=== PATIENT | female | born 1970 | race Caucasian/White ===

== ENCOUNTER 2019-06-22 17:57 | Emergency (ER) | payer MEDICARE, MEDICAID, SELFPAY ==
[2019-06-22 18:32] VITALS: BP 136/87; PULSE 77; RESP 16; TEMP 37.4; O2SAT 100
--- NOTE | 2019-06-22 18:37 | ED.URI ---
HPI - URI/Sore Throat General Chief Complaint: Upper Respiratory Infection Stated Complaint: Sore throat Time Seen by Provider: 06/22/19 18:37 Source: patient and RN notes reviewed Related Data Home Medications Medication Instructions Recorded Confirmed hydrocodone-acetaminophen 1 tablet PO Q6H PRN 06/22/19 06/22/19 levothyroxine [Synthroid] 175 mcg PO DAILY 06/22/19 06/22/19 Allergies Allergy/AdvReac Type Severity Reaction Status Date / Time milk Allergy Mild BOWEL Verified 06/22/19 18:50 DISTURBANCES latex Allergy Unknown RASH Verified 06/22/19 18:50 Penicillins Allergy Unknown RASH Verified 06/22/19 18:50 Review of Systems Review of Systems: Narrative: CONSTITUTIONAL: Denies fever, chills, or sweats. EYES: Denies visual changes, redness, or discharge. ENT: Reports of nasal drainage, swollen lymph nodes CARDIOVASCULAR: Denies chest pain, palpitations, or edema. RESPIRATORY: Denies cough or dyspnea. GASTROINTESTINAL: Denies abdominal pain, nausea, vomiting, or diarrhea. GENITOURINARY: Denies dysuria or hematuria. SKIN: Denies rash or itching. MUSCULOSKELETAL: Denies back pain, joint pain, or myalgia. NEUROLOGIC: Denies headache, numbness, or weakness. All other systems reviewed are negative, except as documented in HPI. PMFSH Comments At the time of my signature, I reviewed and agree with the nursing past medical, surgical, social, and family history. There is no relevant family history pertinent to the patient complaint. Exam Narrative: Exam Narrative: GENERAL: This is a well-nourished, well-developed patient, in no apparent distress. HEAD: normocephalic, atraumatic. EYES: PERRL. Sclera clear/white. Vision is grossly intact. EARS: External ears normal, auditory canals clear and without drainage, TMs normal without perforation. Hearing grossly intact. NOSE: External nose normal with no obvious nasal discharge, nares without redness, no rhinorrhea. THROAT: Mucous membranes moist, posterior pharynx clear. NECK: Neck supple, non-tender without lymphadenopathy, masses or thyromegaly. CARDIOVASCULAR: Regular rate and rhythm without murmurs, gallops, or rubs. RESPIRATORY: Clear to auscultation. Breath sounds equal bilaterally. No wheezes, rales, or rhonchi. SKIN: warm, intact with no suspicious lesions or rash, good texture and turgor. NEURO: awake, alert, and oriented to person, place and time. There were no obvious focal neurologic abnormalities. EXTREMITIES: No clubbing, cyanosis, or edema. Course Vital Signs Vital signs: Vital Signs Temperature 99.4 F 06/22/19 18:32 Pulse Rate 77 06/22/19 18:32 Respiratory Rate 16 06/22/19 18:32 Blood Pressure 136/87 06/22/19 18:32 Pulse Oximetry 100 06/22/19 18:32 Temperature 99.4 F 06/22/19 18:32 Pulse Rate 77 06/22/19 18:32 Respiratory Rate 16 06/22/19 18:32 Blood Pressure 136/87 06/22/19 18:32 Pulse Oximetry 100 06/22/19 18:32 Reviewed MDM - URI/Sore Throat MDM Narrative Medical decision making narrative: Will treat patient considering symptoms and other daughter is positive for strep. Advised her to complete the antibiotic regimen as prescribed. Use Tylenol/ibuprofen as needed. Make sure to eat and drink with medication. Use humidifier at night. Increase fluids and rest. Follow-up with PCP within 2 to 5 days or for worsening symptoms or failure to improve. Patient states that she has tolerated azithromycin in the past. Her allergy to milk is irritable bowel Differential Diagnosis Differential diagnosis: Likely upper respiratory infection, otitis media, sinusitis, viral infection, bronchitis, influenza and pharyngitis Lab Data Attestation: I reviewed the patient's lab results. Critical Care Time Critical Care Time Critical Care Time: No Discharge Plan Discharge Clinical Impression: Pharyngitis Qualifiers: Pharyngitis/tonsillitis etiology: unspecified etiology Qualified Code(s): J02.9 - Acute pharyngitis, unspeci
== END 2019-06-22 19:05 | disposition home or self-care (01) ==
PROVIDERS: Emergency Provider Nurse Practitioner Family
DX: J02.9 Acute pharyngitis, unspecified (principal); E03.9 Hypothyroidism, unspecified; M32.9 Systemic lupus erythematosus, unspecified
CPT/HCPCS: 99213; G0463

== ENCOUNTER 2019-07-18 19:30 | Emergency (ER) | payer MEDICARE, MEDICAID, SELFPAY ==
[2019-07-18 19:47] VITALS: BP 117/89; PULSE 75; RESP 20; TEMP 36.4; O2SAT 100
--- NOTE | 2019-07-18 20:00 | ED.URI ---
HPI - URI/Sore Throat General Chief Complaint: Upper Respiratory Infection Stated Complaint: possible strep Time Seen by Provider: 07/18/19 20:00 Source: patient and family History of Present Illness HPI Narrative: Patient here with her daughter. Patient denies any sore throat no cough no nasal drainage. Patient request to have her throat swab. Patient states her insurance will pay for it and she is here she has will have her throat checked for strep. No trouble swallowing no drooling. Normal appetite normal activity no fever no cough no chest pain. Normal healthy individual MD elicited complaint: other (Asymptomatic no complaints at this visit) Related Data Home Medications Medication Instructions Recorded Confirmed levothyroxine [Synthroid] 175 mcg PO DAILY 06/22/19 07/18/19 Allergies Allergy/AdvReac Type Severity Reaction Status Date / Time milk Allergy Mild BOWEL Verified 07/18/19 19:51 DISTURBANCES latex Allergy Unknown RASH Verified 07/18/19 19:51 Penicillins Allergy Unknown RASH Verified 07/18/19 19:51 Review of Systems Review of Systems: Narrative: CONSTITUTIONAL: Denies fever, chills, or sweats. EYES: Denies visual changes, redness, or discharge. ENT: Denies rhinorrhea, congestion, sore throat, or otalgia. CARDIOVASCULAR: Denies chest pain, palpitations, or edema. RESPIRATORY: Denies cough or dyspnea. GASTROINTESTINAL: Denies abdominal pain, nausea, vomiting, or diarrhea. GENITOURINARY: Denies dysuria or hematuria. SKIN: Denies rash or itching. MUSCULOSKELETAL: Denies back pain, joint pain, or myalgia. NEUROLOGIC: Denies headache, numbness, or weakness. PSYCHIATRIC: Denies anxiety or depression. PMFSH Comments At time of signature, agree with nursing past medical, surgical, social and family history. There is no relevant family history pertinent to the presenting complaint Exam Narrative: Exam Narrative: GENERAL: Well-appearing, well-nourished, and in no acute distress. HEAD: Normocephalic, atraumatic. EYES: PERRLA and EOMI. ENT: Nares clear, no rhinorrhea or epistaxis. Mucous membranes moist. NECK: Supple. CHEST: Clear to auscultation. No respiratory distress. HEART: Regular rate and rhythm. No murmur heard. Normal peripheral pulses. ABDOMEN: Soft, nontender, nondistended, normal active bowel sounds. EXTREMITIES: Normal range of motion. No edema. SKIN: Warm, dry, no rash. NEURO: No focal deficits. Alert and oriented x3. [place] Coma Scale Eye Opening: Spontaneous 4 [place] Coma Scale Motor: Obeys Commands 6 [place] Coma Scale Verbal: Oriented 5 [place] Coma Scale Total 15 Course Vital Signs Vital signs: Vital Signs Temperature 36.4 C 07/18/19 19:47 Pulse Rate 75 07/18/19 19:47 Respiratory Rate 20 07/18/19 19:47 Blood Pressure 117/89 07/18/19 19:47 Pulse Oximetry 100 07/18/19 19:47 Temperature 36.4 C 07/18/19 19:47 Pulse Rate 75 07/18/19 19:47 Respiratory Rate 20 07/18/19 19:47 Blood Pressure 117/89 07/18/19 19:47 Pulse Oximetry 100 07/18/19 19:47 MDM - URI/Sore Throat Differential Diagnosis Differential diagnosis: Likely upper respiratory infection, croup, otitis media, sinusitis, viral infection, bronchitis, influenza and pharyngitis Critical Care Time Critical Care Time Critical Care Time: No Discharge Plan Discharge Clinical Impression: Upper respiratory infection, Pharyngitis Patient Disposition: Home, Self-Care Condition: Stable Instructions: Antibiotic Form Additional Instructions: congestion - flonase am and pm for chronic sinus congestion or prolonged symptoms of sinusitis (takes several days to work). one to three times a day of irrigation of sinus with saline spray, ocean nasal spray or pan pot. fluids. if you don't have hypertension-afrin nasal spray with a 3 day limit for immediate relief of sinus congestion. for runny nose: do over the counter antihistamine (claritin, benadryl, zyrtec) for sneezing, run
== END 2019-07-18 20:20 | disposition home or self-care (01) ==
PROVIDERS: Emergency Provider Nurse Practitioner Family
DX: J06.9 Acute upper respiratory infection, unspecified (principal); J02.9 Acute pharyngitis, unspecified; E03.9 Hypothyroidism, unspecified; M32.9 Systemic lupus erythematosus, unspecified
CPT/HCPCS: 87081; 87880; 99213; G0463

== ENCOUNTER 2021-01-09 14:14 | Emergency (ER) | payer MEDICARE, MEDICAID, OTHER, SELFPAY ==
[2021-01-09 14:20] VITALS: BP 117/81; PULSE 84; RESP 14; TEMP 37; O2SAT 98
[2021-01-09 14:34] VITALS: BP 117/81; PULSE 84; RESP 14; TEMP 37; O2SAT 98
--- NOTE | 2021-01-09 14:38 | ED.DENTAL ---
HPI - Dental/Oral General Chief complaint: Dental/Oral Stated complaint: Possible Thrush Time Seen by Provider: 01/09/21 14:38 Source: patient and RN notes reviewed History of Present Illness HPI Narrative: Patient is a 50-year-old female who presents the urgent care with complaints of possible thrush and sore throat. Patient states is been ongoing for approximately 4 weeks. Patient states she is due to have blood work done for her thyroid. Patient denies of any fever, upper respiratory complaints. States that she has been wiping her mouth out this morning. No other acute complaints. No acute distress noted. Patient read the plan of care. Some parts of this dictation were generated by voice recognition software and may contain typographical and/or grammatical inaccuracies. Related Data Home Medications Medication Instructions Recorded Confirmed levothyroxine [Synthroid] 150 mcg PO DAILY 06/22/19 07/18/19 hydrocodone-acetaminophen 1 tablet PO Q6H PRN 01/09/21 01/09/21 Allergies Allergy/AdvReac Type Severity Reaction Status Date / Time milk Allergy Mild BOWEL Verified 01/09/21 14:32 DISTURBANCES latex Allergy Unknown RASH Verified 01/09/21 14:32 Penicillins Allergy Unknown RASH Verified 01/09/21 14:32 Review of Systems Review of Systems: CONSTITUTIONAL: Denies fever, chills, or sweats. EYES: Denies visual changes, redness, or discharge. ENT: Denies rhinorrhea, congestion, or otalgia. Reports a possible sore throat or thrush CARDIOVASCULAR: Denies chest pain, palpitations, or edema. RESPIRATORY: Denies cough or dyspnea. GASTROINTESTINAL: Denies abdominal pain, nausea, vomiting, or diarrhea. GENITOURINARY: Denies dysuria or hematuria. SKIN: Denies rash or itching. MUSCULOSKELETAL: Denies back pain, joint pain, or myalgia. NEUROLOGIC: Denies headache, numbness, or weakness. All other systems reviewed are negative, except as documented in HPI. PMFSH Comments At the time of my signature, I reviewed and agree with the nursing past medical, surgical, social, and family history. There is no relevant family history pertinent to the patient complaint. Exam Narrative: GENERAL: This is a well-nourished, well-developed patient, in no apparent distress. HEAD: normocephalic, atraumatic. EYES: PERRL. Sclera clear/white. Vision is grossly intact. EARS: External ears normal, auditory canals clear and without drainage, TMs normal without perforation. Hearing grossly intact. NOSE: External nose normal with no obvious nasal discharge, nares without redness, no rhinorrhea. THROAT: Mucous membranes moist, posterior pharynx clear. Thin white layer to the tongue and mild erythema noted to posterior oropharynx NECK: Neck supple, non-tender without lymphadenopathy CARDIOVASCULAR: Regular rate and rhythm without murmurs, gallops, or rubs. RESPIRATORY: Clear to auscultation. Breath sounds equal bilaterally. No wheezes, rales, or rhonchi. SKIN: warm, intact with no suspicious lesions or rash, good texture and turgor. NEURO: awake, alert, and oriented to person, place and time. There were no obvious focal neurologic abnormalities. EXTREMITIES: No clubbing, cyanosis, or edema. Course Vital Signs Vital signs: Vital Signs Temperature 98.6 F 01/09/21 14:20 Pulse Rate 84 01/09/21 14:20 Respiratory Rate 14 01/09/21 14:20 Blood Pressure 117/81 01/09/21 14:20 Pulse Oximetry 98 01/09/21 14:20 Temperature 98.6 F 01/09/21 14:34 Pulse Rate 84 01/09/21 14:34 Respiratory Rate 14 01/09/21 14:34 Blood Pressure 117/81 01/09/21 14:34 Pulse Oximetry 98 01/09/21 14:34 Reviewed MDM - Dental/Oral MDM Narrative Medical decision making narrative: Advised the patient to change her toothbrush within 1 week. Continue to wipe the mouth out several times per day with a warm wash rag, changing the washcloth with each time. Swish and swallow the prescribed oral solution. If you develop any increase in symptoms associated w
== END 2021-01-09 15:04 | disposition home or self-care (01) ==
PROVIDERS: Emergency Provider Nurse Practitioner Family
DX: B37.0 Candidal stomatitis (principal); E03.9 Hypothyroidism, unspecified; M32.9 Systemic lupus erythematosus, unspecified; E06.3 Autoimmune thyroiditis
CPT/HCPCS: 99213; G0463

== ENCOUNTER 2021-02-21 12:44 | Emergency (ER) | payer OTHER, SELFPAY ==
--- NOTE | ~2021-02-21 | XR_ITS ---
EXAMINATION: XR lumbar spine 2-3V DATE: 02/21/2021 13:40 INDICATION: Right-sided abdominal pain TECHNIQUE: Anteroposterior and lateral views of the lumbar spine, and cone-down lateral view of the l umbosacral junction were obtained. COMPARISON: None. FINDINGS: There is no fracture, dislocation, or subluxation. There is mild loss of intervertebral dis c space height at L2-3 and L5-S1. The vertebral body heights are maintained. Small degenerative osteo phytes project from the anterior endplates of multiple vertebral bodies. The bowel gas pattern is nor mal. A moderate volume of colonic stool is present. IMPRESSION: 1. Mild lumbar spondylosis without acute findings. Reviewed, dictated and finalized at location A.
[2021-02-21 12:46] VITALS: BP 144/102; PULSE 75; RESP 18; TEMP 36.8; O2SAT 100
--- NOTE | 2021-02-21 13:30 | ED.BACK ---
HPI - Back Pain/Injury General Chief Complaint: Back Pain/Injury Stated Complaint: right lower abd/low back pain Time Seen by Provider: 02/21/21 13:16 Source: patient Mode of arrival: ambulatory Limitations: no limitations History of Present Illness HPI Narrative: Patient is a 50-year-old female complaining of low back pain, right side, 8 out of 10, radiating to left buttocks started 4 days ago after bending over to pickle pumper her card. Patient states that she has seen her chiropractor 3 days ago and had some adjustments done. Patient denies any incontinence, weakness, numbness, fever, chills or urinary symptoms. Related Data Home Medications Medication Instructions Recorded Confirmed levothyroxine [Synthroid] 150 mcg PO DAILY 06/22/19 07/18/19 hydrocodone-acetaminophen 1 tablet PO Q6H PRN 01/09/21 01/09/21 Allergies Allergy/AdvReac Type Severity Reaction Status Date / Time milk Allergy Mild BOWEL Verified 02/21/21 12:46 DISTURBANCES latex Allergy Unknown RASH Verified 02/21/21 12:46 Penicillins Allergy Unknown RASH Verified 02/21/21 12:46 Review of Systems Review of Systems: All systems reviewed & are unremarkable except as noted in HPI and below Constitutional: Constitutional: Denies body ache(s), Denies chills, Denies excessive sweating, Denies fatigue, Denies fever(s), Denies headache(s), Denies lethargy, Denies malaise, Denies weakness and Denies weight loss Eyes: Eyes: Denies blurry vision, Denies change in vision and Denies loss of vision ENT: Denies dizziness, Denies ear discharge, Denies headache(s), Denies lip swelling, Denies epistaxis, Denies nasal congestion, Denies neck pain, Denies throat swelling and Denies tongue swelling Cardiovascular: Cardiovascular: Denies chest pain, Denies chest pain at rest, Denies chest pain with activity, Denies diaphoresis, Denies rapid heart rate, Denies edema, Denies irregular heart rhythm, Denies lightheadedness, Denies palpitations, Denies dyspnea and Denies dyspnea on exertion Respiratory: Respiratory: Denies chest congestion, Denies cough, Denies hemoptysis, Denies dyspnea and Denies dyspnea on exertion Gastrointestinal: Gastrointestinal: Denies abdominal pain, Denies melena, Denies hematochezia, Denies diarrhea, Denies nausea, Denies vomiting and Denies hematemesis Musculoskeletal: Musculoskeletal: Denies abnormal gait, Denies deformity, Denies joint swelling, Denies neck pain and Denies numbness Neurologic: Denies Abnormal speech present, Denies abnormal gait, Denies confusion, Denies dizziness, Denies headache(s), Denies focal weakness, Denies loss of vision, Denies numbness, Denies Other visual disturbances, Denies Sensory deficit (Neuro) and Denies weakness Psychiatric: Psychiatric: Denies confusion, Denies depression, Denies auditory hallucinations, Denies homicidal ideation and Denies suicidal ideation Endocrine: Endocrine: Denies cold intolerance, Denies excessive sweating, Denies fatigue, Denies heat intolerance and Denies palpitations Hematologic/Lymphatic: Hematologic/Lymphatic: Denies easy bleeding and Denies easy bruising Allergic/Immunologic: Allergic/Immunologic: Denies lip swelling, Denies throat swelling and Denies tongue swelling PMFSH Comments Past medical history: Hypothyroidism, allergies Family history: Noncontributory Social history: Exam Const: General: cooperative, healthy appearing, comfortable, no acute distress, well developed, alert and awake; No confusion Orientation/consciousness: oriented to person, oriented to place, oriented to time, patient oriented x3 and No confusion Limitations: no limitations HENMT: Head: normal to inspection, normocephalic and atraumatic Ears: hearing grossly normal bilaterally, TM normal on the right and TM normal on the left General nose exam: Normal external nose present, Normal nares present and No nasal discharge present Face and sinus: normal facial exam Mouth: Yes Normal oral and palatal mucosa pr
[2021-02-21] MEDS: KETOROLAC 30 MG/ML VIAL (*BKC) IM (14:33)
[2021-02-21 15:18] LABS: Add Urine Microscopic? YES; Appearance Urine Cloudy (Clear); Bacteria Urine Trace /hpf; Bilirubin Urine Negative (Negative); Blood Urine 1+ (Negative); Color Urine Yellow (Yellow); Glucose Urine UA Negative (Negative); Ketones Urine Negative (Negative); Leukocyte Esterase Ur 1+ LEU/UL (Negative); Nitrate Urine Negative (Negative); Protein Urine Negative (Negative); Specific Grav Ur 1.009 (1.001-1.035); Squamous Epithelial Cell Urine Many /hpf (Few); Urobilinogen Urine Negative mg/dL (<2.0)
== END 2021-02-21 15:45 | disposition home or self-care (01) ==
PROVIDERS: Emergency Provider Emergency Medicine; PCP Family Medicine
DX: S39.012A Strain of muscle, fascia and tendon of lower back, initial encounter (principal); E03.9 Hypothyroidism, unspecified; R82.998 Other abnormal findings in urine; X50.9XXA Other and unspecified overexertion or strenuous movements or postures, initial encounter
CPT/HCPCS: 72100; 81001; 87086; 96372; 99284; J1100; J1885

== ENCOUNTER 2021-05-15 15:39 | Emergency (ER) | payer OTHER, SELFPAY ==
--- NOTE | 2021-05-15 15:51 | ED.URI ---
HPI - URI/Sore Throat General Chief Complaint: Upper Respiratory Infection Stated Complaint: Sinus pain Time Seen by Provider: 05/15/21 15:51 Source: patient, family, RN notes reviewed and old records reviewed Mode of arrival: ambulatory Limitations: no limitations History of Present Illness HPI Narrative: 50 yo female presents [facility] with complaints of sinus pain and pressure for at least the last 2 days. Has a history of lupus. Has tried Tylenol and allergy sinus. Related Data Home Medications Medication Instructions Recorded Confirmed levothyroxine [Synthroid] 150 mcg PO DAILY 06/22/19 05/15/21 hydrocodone-acetaminophen 1 tablet PO Q6H PRN 01/09/21 05/15/21 hydroxychloroquine 200 mg PO DAILY 05/15/21 05/15/21 Allergies Allergy/AdvReac Type Severity Reaction Status Date / Time milk Allergy Mild BOWEL Verified 05/15/21 15:52 DISTURBANCES latex Allergy Unknown RASH Verified 05/15/21 15:52 Penicillins Allergy Unknown RASH Verified 05/15/21 15:52 Review of Systems Review of Systems: All systems reviewed & are unremarkable except as noted in HPI and below Constitutional: Constitutional: Reports no additional constitutional complaints, Denies chills, Denies fever(s) and Denies headache(s) Eyes: Eyes: Reports no additional eye complaints ENT: Reports as per HPI, Denies vertigo, Denies dizziness, Denies headache(s), Reports nasal congestion and Denies sore throat Comments: Left ear pressure Cardiovascular: Cardiovascular: Reports no additional cardiovascular complaints, Denies chest pain, Denies syncope, Denies rapid heart rate and Denies dyspnea Respiratory: Respiratory: Reports no additional respiratory complaints, Denies cough, Denies dyspnea and Denies wheezing Gastrointestinal: Gastrointestinal: Reports no additional gastrointestinal complaints, Denies abdominal pain, Denies diarrhea, Denies nausea and Denies vomiting Musculoskeletal: Musculoskeletal: Reports no additional musculoskeletal complaints and Denies numbness Integumentary/Breasts: Skin/Breast: Reports system reviewed and no additional complaints, except as docu Neurologic: Reports system reviewed and no additional complaints, except as documented, Denies vertigo, Denies dizziness, Denies syncope, Denies headache(s), Denies focal weakness and Denies numbness Psychiatric: Psychiatric: Reports no additional psychiatric complaints Allergic/Immunologic: Allergic/Immunologic: Reports no additional allergic/immunologic complaints and Denies wheezing PMFSH Past Medical History Medical History (Updated 05/15/21 @ 18:22 by Yandy Lala) Lupus Comments At the time of my signature, I reviewed and agree with the nursing past medical, surgical, social, and family history. There is no relevant family history pertinent to the patient complaint. Exam Const: General: cooperative, healthy appearing, no acute distress, well developed and alert Nutritional Appearance: well nourished Orientation/consciousness: patient oriented x3 Limitations: no limitations HENMT: Head: normal to inspection Ears: external ears normal, TM's normal bilaterally and EAC's normal General nose exam: Abnormal mucous membranes and turbinates present boggy; not erythematous and Nasal discharge present clear Face and sinus: normal facial exam and sinus tenderness frontal and maxillary Throat: posterior oropharynx normal and uvula midline Eyes: Conjunctivae: conjunctivae normal Pupils: Equal, round and reactive pupils present Neck: Neck: normal visual inspection, no lymphadenopathy and no meningeal signs Chest: Chest palpation & inspection: normal inspection of the chest Resp: Effort & Inspection: normal respiratory effort and no use of accessory muscles Auscultation: clear to auscultation bilaterally, no crackles, no rales, no rhonchi and no wheezes Cardio: Rate: regular rate Rhythm: regular rhythm Back/Spine/Pelvis: Back: no CVA tenderness Skin: General skin e
[2021-05-15 15:57] VITALS: BP 114/81; PULSE 88; RESP 16; TEMP 38.2; O2SAT 100
== END 2021-05-15 16:06 | disposition home or self-care (01) ==
PROVIDERS: Emergency Provider Nurse Practitioner; PCP Family Medicine
DX: J01.40 Acute pansinusitis, unspecified (principal); M32.9 Systemic lupus erythematosus, unspecified; E03.9 Hypothyroidism, unspecified; E06.3 Autoimmune thyroiditis
CPT/HCPCS: 99213; G0463

== ENCOUNTER 2022-07-12 15:55 | Emergency (ER) | payer OTHER, SELFPAY ==
[2022-07-12 16:02] VITALS: BP 115/73; PULSE 83; RESP 16; TEMP 36.5; O2SAT 99
--- NOTE | 2022-07-12 16:04 | ED.WOUNDLAC ---
HPI - Wound/Laceration General Chief Complaint: Wound/Laceration Stated Complaint: right thumb injury/ lupus flair Time Seen by Provider: 07/12/22 16:05 Source: patient and RN notes reviewed Mode of arrival: ambulatory Limitations: no limitations History of Present Illness HPI narrative: 51-year-old female presents with multiple concerns. She reports 36 hours ago she lacerated the 1st digit of the right hand on concrete, she put a Band-Aid on it, when she took the bandage off today it started bleeding again. She denies any decreased sensation, strength, range of motion of the digit. In a separate complaints she reports the start of a lupus flare. Reports she has appoint with her doctor on Tuesday, however she needs to get started on steroids sooner than that to prevent the flare from worsening. Related Data Home Medications Medication Instructions Recorded Confirmed levothyroxine 175 mcg tablet 150 mcg PO DAILY 06/22/19 05/15/21 (Synthroid) hydrocodone 7.5 mg-acetaminophen 1 tablet PO Q6H PRN Pain (Scale 01/09/21 05/15/21 325 mg tablet Score 7-10) hydroxychloroquine 200 mg tablet 200 mg PO DAILY 05/15/21 05/15/21 Allergies Allergy/AdvReac Type Severity Reaction Status Date / Time milk Allergy Mild BOWEL Verified 05/15/21 15:52 DISTURBANCES latex Allergy Unknown RASH Verified 05/15/21 15:52 Penicillins Allergy Unknown RASH Verified 05/15/21 15:52 Review of Systems Review of Systems: CONSTITUTIONAL: Denies malaise, chills, sweats, or fever. SKIN: Reports laceration to 1st digit right hand MUSCULOSKELETAL: Reports generalized joint pain NEUROLOGIC: Denies numbness, weakness All systems reviewed & are unremarkable except as noted in HPI and below PMFSH Past Medical History Medical History (Updated 07/12/22 @ 16:18 by Yandy Hale NP) Lupus Comments At time of signature, agree with nursing past medical, surgical, social and family history. There is no relevant family history pertinent to the presenting complaint Exam Narrative: GENERAL: Well-appearing, well-nourished, and in no acute distress. HEAD: Normocephalic EYES: PERRLA, conjunctivae clear NECK: Supple. CHEST: Speaks in full sentences. No respiratory distress. HEART: Regular rate and rhythm. Normal and equal peripheral pulses. EXTREMITIES: 1st digit of right hand has normal strength and sensation. 5/5 strength with digit flexion, extension. Range of motion normal. No clubbing, cyanosis, or edema noted. No tenderness. Normal digital cascade with flexion of fingers, median, ulnar and radial nerve intact. Normal sensation of each side of finger. Normal thumb opposition. Good capillary refill and radial pulse. Distal capillary refill less than 3 seconds. SKIN: Warn, dry, intact, pink. 1 cm L-shaped skin flap noted to the mid 1st digit of the right hand with some active bleeding NEURO: Alert and oriented x3. PSYCH: Normal mood and affect Course Course Emergency Course: Patient's wound was cleaned, closed with Steri-Strips Patient is aware of diagnosis, understands and agrees to treatment plan. Anticipatory guidance given. Patient agrees to follow-up as directed and is aware of reasons to seek care at the emergency department. Portions of this record may have been created with voice recognition software Level of Care: Express Care Visit Vital Signs Vital signs: Reviewed. MDM - Wound/Laceration MDM Narrative Medical decision making narrative: Exam findings show no acute concerns or changes; patient is non-toxic appearing and is in no distress. Patient is appropriate for outpatient treatment and follow-up. Differential Diagnosis Differential diagnosis: Likely laceration, abrasion and avulsion of skin Critical Care Time Critical Care Time Critical Care Time: No Discharge Plan Discharge Clinical Impression: Laceration, SLE exacerbation Patient Disposition: Home, Self-Care Condition: Stable Instructions: Finger Lacerati
== END 2022-07-12 16:36 | disposition home or self-care (01) ==
PROVIDERS: Emergency Provider Nurse Practitioner
DX: S61.011A Laceration without foreign body of right thumb without damage to nail, initial encounter (principal); W45.8XXA Other foreign body or object entering through skin, initial encounter; M32.9 Systemic lupus erythematosus, unspecified
CPT/HCPCS: 99213; G0463

== ENCOUNTER 2022-07-19 18:23 | Emergency (ER) | payer OTHER, SELFPAY ==
--- NOTE | 2022-07-19 18:27 | ED.SKABFB ---
HPI - Skin/Abscess/Foreign Bdy General Chief complaint: Wound/Laceration Stated complaint: Wound Check/Thumb Time Seen by Provider: 07/19/22 18:27 Source: patient and RN notes reviewed History of Present Illness HPI narrative: Patient is a 51-year-old female presents to urgent care requesting for a wound check to the right thumb. Patient was seen at our facility on July 12 after a laceration from a concrete. Patient was seen 36 hours after the injury and the wound was Steri stripped. 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 Patient states that she showed nurse then and even though she had covered with a bandage and glove, states that she noticed some redness around the area was told to have it looked at. Patient denies any fever, nausea or vomiting. States that she has been using Neosporin and cleaning it with plain soap and water. No other acute complaints. No acute distress noted. Patient aware of the plan of care. Some parts of this dictation were generated by voice recognition software and may contain typographical and/or grammatical inaccuracies. Related Data Home Medications Medication Instructions Recorded Confirmed levothyroxine 175 mcg tablet 150 mcg PO DAILY 06/22/19 05/15/21 (Synthroid) hydrocodone 7.5 mg-acetaminophen 1 tablet PO Q6H PRN Pain (Scale 01/09/21 05/15/21 325 mg tablet Score 7-10) hydroxychloroquine 200 mg tablet 200 mg PO DAILY 05/15/21 05/15/21 Allergies Allergy/AdvReac Type Severity Reaction Status Date / Time milk Allergy Mild BOWEL Verified 05/15/21 15:52 DISTURBANCES latex Allergy Unknown RASH Verified 05/15/21 15:52 Penicillins Allergy Unknown RASH Verified 05/15/21 15:52 Review of Systems Review of Systems: CONSTITUTIONAL: Denies fever, chills, or sweats. EYES: Denies visual changes, redness, or discharge. ENT: Denies rhinorrhea, congestion, sore throat, or otalgia. CARDIOVASCULAR: Denies chest pain, palpitations, or edema. RESPIRATORY: Denies cough or dyspnea. GASTROINTESTINAL: Denies abdominal pain, nausea, vomiting, or diarrhea. GENITOURINARY: Denies dysuria or hematuria. SKIN: Reports an open wound to the right thumb MUSCULOSKELETAL: Denies back pain, joint pain, or myalgia. NEUROLOGIC: Denies headache, numbness, or weakness. All other systems reviewed are negative, except as documented in HPI. [facility] Past Medical History Medical History (Updated 07/19/22 @ 18:59 by DICK Denis) Lupus Comments At the time of my signature, I reviewed and agree with the nursing past medical, surgical, social, and family history. There is no relevant family history pertinent to the patient complaint. Exam Narrative: GENERAL: This is a well-nourished, well-developed patient, in no apparent distress. HEAD: normocephalic, atraumatic. EYES: PERRL. Sclera clear/white. Vision is grossly intact. EARS: External ears normal NOSE: External nose normal with no obvious nasal discharge, nares without redness, no rhinorrhea. THROAT: Mucous membranes moist NECK: Neck supple SKIN: 1 cm x 0.25 cm open healing laceration to the left thumb without surrounding erythema or edema. Warm, intact with no suspicious lesions or rash, good texture and turgor. NEURO: awake, alert, and oriented to person, place and time. There were no obvious focal neurologic abnormalities. EXTREMITIES: No clubbing, cyanosis, or edema. Course Course Level of Care: Express Care Visit Vital Signs Vital signs: Vital Signs Temperature 98.4 F 07/19/22 18:32 Pulse Rate 67 07/19/22 18:32 Respiratory Rate 20 07/19/22 18:32 Blood Pressure 97/67 L 07/19/22 18:32 Pulse Oximetry 100 07/19/22 18:32 Oxygen Delivery Room Air 07/19/22 18:32 Temperature 98.4 F 07/19/22 18:32 Pulse Rate 67 07/19/22 18:32 Respiratory Rate 20 07/19/22 18:32 Blood Pressure 97/67 L 07/19/22 18
[2022-07-19 18:32] VITALS: BP 97/67; PULSE 67; RESP 20; TEMP 36.9; O2SAT 100
== END 2022-07-19 19:03 | disposition home or self-care (01) ==
PROVIDERS: Emergency Provider Nurse Practitioner Family
DX: S61.011D Laceration without foreign body of right thumb without damage to nail, subsequent encounter (principal); W45.8XXD Other foreign body or object entering through skin, subsequent encounter
CPT/HCPCS: 99213; G0463

== ENCOUNTER 2022-11-25 13:07 | Emergency (ER) | payer OTHER, SELFPAY ==
[2022-11-25 13:14] VITALS: BP 120/81; PULSE 87; RESP 16; TEMP 37.2; O2SAT 99
--- NOTE | 2022-11-25 13:15 | ED.GENADULT ---
HPI - General Adult General Chief complaint: Ear Stated complaint: Left Ear Pain Time Seen by Provider: 11/25/22 13:15 Source: patient, RN notes reviewed and old records reviewed Mode of arrival: ambulatory Limitations: no limitations History of Present Illness HPI narrative: 52-year-old female presents to the [facility] with complaints of left ear pain that started 4 days ago. Had taking Claritin 1 time Related Data Home Medications Medication Instructions Recorded Confirmed hydrocodone 7.5 mg-acetaminophen 1 tablet PO Q6H PRN Pain (Scale 01/09/21 05/15/21 325 mg tablet Score 7-10) hydroxychloroquine 200 mg tablet 200 mg PO DAILY 05/15/21 05/15/21 levothyroxine 200 mcg tablet 200 mcg PO DAILY 11/25/22 11/25/22 Allergies Allergy/AdvReac Type Severity Reaction Status Date / Time milk Allergy Mild BOWEL Verified 11/25/22 13:15 DISTURBANCES latex Allergy Unknown RASH Verified 11/25/22 13:15 Penicillins Allergy Unknown RASH Verified 11/25/22 13:15 Review of Systems Review of Systems: All systems reviewed & are unremarkable except as noted in HPI and below Constitutional: Constitutional: Reports no additional constitutional complaints Eyes: Eyes: Reports no additional eye complaints ENT: Reports as per HPI and Reports otalgia ( Left) Cardiovascular: Cardiovascular: Reports no additional cardiovascular complaints, Denies chest pain and Denies dyspnea Respiratory: Respiratory: Reports no additional respiratory complaints, Denies chest congestion, Denies cough and Denies dyspnea Gastrointestinal: Gastrointestinal: Reports no additional gastrointestinal complaints, Denies abdominal pain, Denies nausea and Denies vomiting Musculoskeletal: Musculoskeletal: Reports no additional musculoskeletal complaints Integumentary/Breasts: Skin/Breast: Reports system reviewed and no additional complaints, except as docu Neurologic: Reports system reviewed and no additional complaints, except as documented Psychiatric: Psychiatric: Reports no additional psychiatric complaints Allergic/Immunologic: Allergic/Immunologic: Reports no additional allergic/immunologic complaints PMFSH Past Medical History Medical History Lupus Comments At the time of my signature, I reviewed and agree with the nursing past medical, surgical, social, and family history. There is no relevant family history pertinent to the patient complaint. Exam Const: General: cooperative, healthy appearing, comfortable, no acute distress, well developed, alert and well nourished Nutritional Appearance: well nourished Orientation/consciousness: patient oriented x3 Limitations: no limitations HENMT: Head: normal to inspection Ears: hearing grossly normal bilaterally, external ears normal, EAC's normal and TM abnormal bulging on the left and with fluid behind the TM on the left; not dull, not erythematous, with no loss of landmarks, not obstructed by cerumen, not perforated and not retracted Face/Nose/Sinus: Normal external nose present, Normal nares present, Normal nasal mucous membranes and turbinates present and normal facial exam Face and sinus: normal facial exam Mouth: Yes Normal oral and palatal mucosa present, Yes lip normal and Yes moist mucous membranes Throat: posterior oropharynx normal, uvula midline and postnasal drainage Eyes: General: appearance normal, both eyes and all related structures Alignment and Position: alignment normal Periorbital: periorbital findings normal Pupils: Equal, round and reactive pupils present EOM: EOMs intact bilaterally Neck: Neck: normal visual inspection, full ROM, no lymphadenopathy and no meningeal signs Chest: Chest palpation & inspection: normal inspection of the chest Resp: Effort & Inspection: normal respiratory effort and able to speak in complete sentences Auscultation: clear to auscultation bilaterally, no crackles, no rales, no rhonchi and no wheez
[2022-11-25 13:17] VITALS: BP 120/81; PULSE 87; RESP 16; TEMP 37.2; O2SAT 99
== END 2022-11-25 13:32 | disposition home or self-care (01) ==
PROVIDERS: Emergency Provider Nurse Practitioner
DX: H65.02 Acute serous otitis media, left ear (principal); M32.9 Systemic lupus erythematosus, unspecified; E03.9 Hypothyroidism, unspecified
CPT/HCPCS: 99213; G0463

== ENCOUNTER 2022-12-17 16:55 | Emergency (ER) | payer OTHER, SELFPAY ==
[2022-12-17 17:00] VITALS: BP 121/81; PULSE 66; RESP 18; TEMP 37.1; O2SAT 98
--- NOTE | 2022-12-17 17:25 | ED.HA ---
HPI - Headache General Chief Complaint: Headache Stated Complaint: check out to go back to work Time Seen by Provider: 12/17/22 17:23 Source: patient and RN notes reviewed Mode of arrival: ambulatory Limitations: no limitations History of Present Illness HPI Narrative: 52-year-old female presents with concern for turning or work after headache. She reports she had a headache on Tuesday, she took her migraine medicine, to standing which made her headache go away. She reports she missed work and her boss was concerned for COVID. In a 2nd complaint she reports itchy chigger bites on her arms and legs MD elicited complaint: headache Related Data Home Medications Medication Instructions Recorded Confirmed hydrocodone 7.5 mg-acetaminophen 1 tablet PO Q6H PRN Pain (Scale 01/09/21 12/17/22 325 mg tablet Score 7-10) levothyroxine 200 mcg tablet 200 mcg PO DAILY 11/25/22 12/17/22 Allergies Allergy/AdvReac Type Severity Reaction Status Date / Time milk Allergy Mild BOWEL Verified 12/17/22 17:08 DISTURBANCES latex Allergy Unknown RASH Verified 12/17/22 17:08 Penicillins Allergy Unknown RASH Verified 12/17/22 17:08 Review of Systems Review of Systems: CONSTITUTIONAL: Denies malaise, chills, sweats, or fever. EYES: Denies visual changes, redness, or discharge. ENT: Denies rhinorrhea, congestion, sinus pain, otalgia and sore throat. CARDIOVASCULAR: Denies chest pain, palpitations, or edema. RESPIRATORY: Denies cough. Denies dyspnea. GASTROINTESTINAL: Denies abdominal pain, nausea, vomiting, diarrhea SKIN: Reports itchy trigger bites on her arms and legs MUSCULOSKELETAL: Denies myalgia. NEUROLOGIC: Denies headache. All systems reviewed & are unremarkable except as noted in HPI and below PMFSH Past Medical History Medical History Lupus Comments At time of signature, agree with nursing past medical, surgical, social and family history. There is no relevant family history pertinent to the presenting complaint Exam Narrative: GENERAL: Well-appearing, well-nourished, and in no acute distress. HEAD: Normocephalic EYES: PERRLA, conjunctivae clear ENT: Nares clear. Mucous membranes moist. TM pearly morris with sharp light reflex bilaterally; no tragal tenderness. Oropharynx not erythematous without lesions. Tonsils not enlarged and without exudate, no drooling, no hoarseness, no trismus, uvula midline. NECK: Supple. No lymphadenopathy CHEST: Clear to auscultation, breath sounds equal. No wheezing, rhonchi, rales, or stridor. No respiratory distress, speaks in full sentences. HEART: Regular rate and rhythm. No murmur heard. SKIN: Warm, dry, no rash. Scattered red papules on legs noted NEURO: Alert and oriented x3. PSYCH: Normal mood and affect Course Course Emergency Course: Patient is refusing COVID test, advised her that I cannot give her a work note ruling out COVID got a COVID test. Patient is aware of diagnosis, understands and agrees to treatment plan. Anticipatory guidance given. Patient agrees to follow-up as directed and is aware of reasons to seek care at the emergency department. Portions of this record may have been created with voice recognition software Level of Care: Express Care Visit Vital Signs Vital signs: Vital Signs Temperature 98.8 F 12/17/22 17:00 Pulse Rate 66 12/17/22 17:00 Respiratory Rate 18 12/17/22 17:00 Blood Pressure 121/81 12/17/22 17:00 Pulse Oximetry 98 12/17/22 17:00 Oxygen Delivery Room Air 12/17/22 17:00 Temperature 98.8 F 12/17/22 17:00 Pulse Rate 66 12/17/22 17:00 Respiratory Rate 18 12/17/22 17:00 Blood Pressure 121/81 12/17/22 17:00 Pulse Oximetry 98 12/17/22 17:00 Oxygen Delivery Room Air 12/17/22 17:00 Reviewed. MDM - Headache Lab Data Attestation: I reviewed the patient's lab results. Critical Care Time Critical Care Time Critical Care Time: No Discha
== END 2022-12-17 17:36 | disposition home or self-care (01) ==
PROVIDERS: Emergency Provider Nurse Practitioner
DX: G43.909 Migraine, unspecified, not intractable, without status migrainosus (principal); B88.0 Other acariasis
CPT/HCPCS: 99213; G0463

== ENCOUNTER 2023-03-28 18:13 | Emergency (ER) | payer OTHER, SELFPAY ==
[2023-03-28 18:20] VITALS: BP 109/73; PULSE 93; RESP 20; TEMP 37.3; O2SAT 98
--- NOTE | 2023-03-28 18:44 | ED.URI ---
HPI - URI/Sore Throat General Chief Complaint: Upper Respiratory Infection Stated Complaint: Headache/Body Aches/Fever Time Seen by Provider: 03/28/23 18:43 Source: patient and RN notes reviewed Mode of arrival: ambulatory Limitations: no limitations History of Present Illness HPI Narrative: 52-year-old female presents with concern for nasal congestion, rhinorrhea, headache, watery eyes, sinus pressure. She reports she took an [id number] cold medicine relief. She reports chills and sweats. MD elicited complaint: nasal congestion Related Data Home Medications Medication Instructions Recorded Confirmed hydrocodone 7.5 mg-acetaminophen 1 tablet PO Q6H PRN Pain (Scale 01/09/21 03/28/23 325 mg tablet Score 7-10) levothyroxine 200 mcg tablet 200 mcg PO DAILY 11/25/22 03/28/23 liothyronine 5 mcg tablet 5 mcg PO DIRECTED 03/28/23 03/28/23 Allergies Allergy/AdvReac Type Severity Reaction Status Date / Time milk Allergy Mild BOWEL Verified 03/28/23 18:29 DISTURBANCES latex Allergy Unknown RASH Verified 03/28/23 18:29 Penicillins Allergy Unknown RASH Verified 03/28/23 18:29 Review of Systems Review of Systems: CONSTITUTIONAL: Denies malaise, chills, sweats EYES: Denies visual changes, redness, or discharge. ENT: Reports rhinorrhea, congestion, sinus pain CARDIOVASCULAR: Denies chest pain, palpitations, or edema. RESPIRATORY: Denies cough. Denies dyspnea. GASTROINTESTINAL: Denies abdominal pain, nausea, vomiting, diarrhea SKIN: Denies rash or itching. MUSCULOSKELETAL: Denies myalgia. NEUROLOGIC: Reports headache. All systems reviewed & are unremarkable except as noted in HPI and below PMFSH Past Medical History Medical History Lupus Comments At time of signature, agree with nursing past medical, surgical, social and family history. There is no relevant family history pertinent to the presenting complaint Exam Narrative: GENERAL: Well-appearing, well-nourished, and in no acute distress. HEAD: Normocephalic EYES: PERRLA, conjunctivae clear ENT: Nares clear, turbinates edematous and erythematous, clear discharge. Mucous membranes moist. TM pearly morris with dull light reflex bilaterally; no tragal tenderness. Oropharynx not erythematous without lesions. Tonsils not enlarged and without exudate, no drooling, no hoarseness, no trismus, uvula midline. NECK: Supple. No lymphadenopathy CHEST: Clear to auscultation, breath sounds equal. No wheezing, rhonchi, rales, or stridor. No respiratory distress, speaks in full sentences. HEART: Regular rate and rhythm. No murmur heard. SKIN: Warm, dry, no rash. NEURO: Alert and oriented x3. PSYCH: Normal mood and affect Course Course Emergency Course: Patient is aware of diagnosis, understands and agrees to treatment plan. Anticipatory guidance given. Patient agrees to follow-up as directed and is aware of reasons to seek care at the emergency department. Portions of this record may have been created with voice recognition software Level of Care: Express Care Visit Vital Signs Vital signs: Vital Signs Temperature 99.1 F 03/28/23 18:20 Pulse Rate 93 03/28/23 18:20 Respiratory Rate 20 03/28/23 18:20 Blood Pressure 109/73 03/28/23 18:20 Pulse Oximetry 98 03/28/23 18:20 Oxygen Delivery Room Air 03/28/23 18:20 Temperature 99.1 F 03/28/23 18:20 Pulse Rate 93 03/28/23 18:20 Respiratory Rate 20 03/28/23 18:20 Blood Pressure 109/73 03/28/23 18:20 Pulse Oximetry 98 03/28/23 18:20 Oxygen Delivery Room Air 03/28/23 18:20 Reviewed. MDM - URI/Sore Throat MDM Narrative Medical decision making narrative: Differential diagnosis considered: Peters virus, strep pharyngitis, allergic rhinitis, upper respiratory tract infection, sinusitis, rhinosinusitis, nasopharyngitis. viral pharyngitis, otitis media, otitis externa, pneumonia, bronchitis, viral cough syndrome, vir
== END 2023-03-28 19:00 | disposition home or self-care (01) ==
PROVIDERS: Emergency Provider Nurse Practitioner
DX: J06.9 Acute upper respiratory infection, unspecified (principal); Z79.891 Long term (current) use of opiate analgesic; Z79.899 Other long term (current) drug therapy
CPT/HCPCS: 99213; G0463

== ENCOUNTER 2023-06-16 11:57 | Emergency (ER) | payer OTHER, SELFPAY ==
[2023-06-16 12:09] VITALS: BP 118/82; PULSE 77; RESP 16; TEMP 36.9; O2SAT 99
--- NOTE | 2023-06-16 12:28 | ED.GENADULT ---
HPI - General Adult General Chief complaint: Back Pain/Injury Stated complaint: lower back pain Time Seen by Provider: 06/16/23 12:27 Source: patient Mode of arrival: ambulatory History of Present Illness HPI narrative: 52-year-old female presents to [facility] for lower bilateral back pain for 4 days and urinary urgency and frequency for 5 days. Location: back (bilateral lower) Radiation: abdomen (left lower) Severity: severe and similar to prior episodes Quality: sharp and constant Pain Consistency: constant Relieving factors: none Exacerbating factors: movement Treatments prior to arrival: NSAID and other Related Data Home Medications Medication Instructions Recorded Confirmed hydrocodone 7.5 mg-acetaminophen 1 tablet PO Q6H PRN Pain (Scale 01/09/21 03/28/23 325 mg tablet Score 7-10) levothyroxine 200 mcg tablet 200 mcg PO DAILY 11/25/22 03/28/23 liothyronine 5 mcg tablet 5 mcg PO DIRECTED 03/28/23 03/28/23 Allergies Allergy/AdvReac Type Severity Reaction Status Date / Time milk Allergy Mild BOWEL Verified 03/28/23 18:29 DISTURBANCES latex Allergy Unknown RASH Verified 03/28/23 18:29 Penicillins Allergy Unknown RASH Verified 03/28/23 18:29 Review of Systems Constitutional: Constitutional: Denies body ache(s), Denies chills and Denies fever(s) Eyes: Eyes: Reports no additional eye complaints Genitourinary: Genitourinary: Reports nocturia and Reports urinary urgency Musculoskeletal: Musculoskeletal: Reports back pain, Denies limited range of motion, Denies numbness, Denies radiating pain into limb and Denies tingling Neurologic: Denies abnormal gait, Denies frequent falls, Denies radicular pain, Denies Sensory deficit (Neuro), Denies tingling and Denies weakness PMFSH Past Medical History Medical History Lupus Comments At the time of my signature, I reviewed and agree with the nursing past medical, surgical, social, and family history. There is no relevant family history pertinent to the patient complaint. Exam Narrative: Const: General: cooperative, healthy appearing, alert, awake, uncomfortable, well groomed and well nourished Orientation/consciousness: patient oriented x3 Limitations: physical limitations HENMT: Head: normal to inspection Ears: external ears normal Face/Nose/Sinus: Normal external nose present Neck: Neck: no meningeal signs Resp: Effort & Inspection: normal respiratory effort and able to speak in complete sentences Cardio: Rate: regular rate Rhythm: regular rhythm : General: Yes no CVA tenderness Back/Spine/Pelvis: Back: no CVA tenderness Thoracic/Lumbar Spine: lumbar spinal tenderness Skin: General skin exam: normal color Neuro: General: patient oriented x3, moves all extremities and no meningeal signs Speech: normal speech Extrem: General: normal to inspection, full ROM, normal gait and no edema Psych: Appearance: grossly normal and well kempt Speech and movement: Normal speech and movement present Course Course Level of Care: Express Care Visit Vital Signs Vital signs: Vital Signs Temperature 36.9 C 06/16/23 12:09 Pulse Rate 77 06/16/23 12:09 Respiratory Rate 16 06/16/23 12:09 Blood Pressure 118/82 06/16/23 12:09 Pulse Oximetry 99 06/16/23 12:09 Oxygen Delivery Room Air 06/16/23 12:09 Temperature 36.9 C 06/16/23 12:09 Pulse Rate 77 06/16/23 12:09 Respiratory Rate 16 06/16/23 12:09 Blood Pressure 118/82 06/16/23 12:09 Pulse Oximetry 99 06/16/23 12:09 Oxygen Delivery Room Air 06/16/23 12:09 reviewed Medical Decision Making MDM Narrative Medical decision making narrative: Patient presents to [facility] with bilateral lower back pain radiating to left for 4 days. Denies known injury no acute findings on exam. Patient complains of urinary urgency and frequency for 5 days. Urine positive for leukocytes and trace tonio
== END 2023-06-16 12:50 | disposition home or self-care (01) ==
PROVIDERS: Emergency Provider Nurse Practitioner Family
DX: S39.012A Strain of muscle, fascia and tendon of lower back, initial encounter (principal); X58.XXXA Exposure to other specified factors, initial encounter; N39.0 Urinary tract infection, site not specified
CPT/HCPCS: 81003; 87086; 99213; G0463

== ENCOUNTER 2023-08-03 19:36 | Emergency (ER) | payer OTHER, SELFPAY ==
--- NOTE | 2023-08-03 19:40 | ED.URI ---
HPI - URI/Sore Throat General Chief Complaint: Upper Respiratory Infection Stated Complaint: Sinus Congestion Source: patient and RN notes reviewed Mode of arrival: ambulatory Limitations: no limitations History of Present Illness HPI Narrative: 52-year-old female presented for complaint of nasal congestion and head pressure about 3 days. She endorses a child with RSV coughed directly into her mouth. Took a dose of claritin and a dose of Sudafed without relief. Denies cough, sob, wheezing, n/v/d/f/c. MD elicited complaint: cough Related Data Home Medications Medication Instructions Recorded Confirmed liothyronine 5 mcg tablet 5 mcg PO BID 03/28/23 08/03/23 levothyroxine 125 mcg tablet 125 mcg PO DAILY 08/03/23 08/03/23 omeprazole 40 mg capsule,delayed 40 mg PO DAILY 08/03/23 08/03/23 release Allergies Allergy/AdvReac Type Severity Reaction Status Date / Time milk Allergy Mild BOWEL Verified 08/03/23 19:40 DISTURBANCES latex Allergy Unknown RASH Verified 08/03/23 19:40 Penicillins Allergy Unknown RASH Verified 08/03/23 19:40 Review of Systems Review of Systems: CONSTITUTIONAL: denies malaise, chills, sweats, fever EYES: Denies visual changes, redness, or discharge ENT: Reports rhinorrhea, congestion, sinus pain, denies otalgia, sore throat CARDIOVASCULAR: Denies chest pain, palpitations, edema RESPIRATORY: Denies dyspnea GASTROINTESTINAL: Denies abdominal pain, nausea, vomiting, diarrhea SKIN: Denies rash or itching MUSCULOSKELETAL: denies myalgia PMFSH Past Medical History Medical History Lupus Exam Narrative: GENERAL: well-appearing, nontoxic no acute distress. EYES: PERRLA, conjunctivae clear ENT: Mucous membranes moist. nasal congestion noted. TMs pearly morris with dull light reflex bilaterally; no tragal tenderness. Oropharynx not erythematous without lesions or exudate, no drooling, no hoarseness, no trismus, uvula midline. No tripod positioning, muffled voice, soft palate or pharyngeal wall bulging NECK: Supple. No lymphadenopathy CHEST: Clear to auscultation, breath sounds equal. No wheezing, rhonchi, rales, or stridor. No respiratory distress, speaks in full sentences. HEART: Regular rate and rhythm. No murmur heard. SKIN: Warm, dry, no rash. NEURO: Alert and oriented x3. Course Course Emergency Course: Patient is aware of diagnosis, understands and agrees to treatment plan. Anticipatory guidance given. Patient agrees to follow-up as directed and is aware of reasons to seek care at the emergency department. Portions of this record may have been created with voice recognition software Level of Care: Express Care Visit Vital Signs Vital signs: Vital Signs Temperature 99.6 F 08/03/23 19:44 Pulse Rate 69 08/03/23 19:44 Respiratory Rate 16 08/03/23 19:44 Blood Pressure 127/94 H 08/03/23 19:44 Pulse Oximetry 99 08/03/23 19:44 Oxygen Delivery Room Air 08/03/23 19:44 Temperature 99.6 F 08/03/23 19:44 Pulse Rate 69 08/03/23 19:44 Respiratory Rate 16 08/03/23 19:44 Blood Pressure 127/94 H 08/03/23 19:44 Pulse Oximetry 99 08/03/23 19:44 Oxygen Delivery Room Air 08/03/23 19:44 reviewed MDM - URI/Sore Throat MDM Narrative Medical decision making narrative: Discussed physical exam findings. Advised supportive measures and signs/symptoms to go to the ER. Pt is appropriate for outpt treatment and f/u. Differential Diagnosis Differential diagnosis: Likely upper respiratory infection, sinusitis and viral infection Discharge Plan Discharge Clinical Impression: Upper respiratory infection Patient Disposition: Home, Self-Care Condition: Stable Instructions: Antibiotic Form Additional Instructions: Recommend Flonase spray and Zyrtec (or Claritin/Nessa) If you take Afrin, take it according to package directions for no more than 3 days. over the counter Cough
[2023-08-03 19:44] VITALS: BP 127/94; PULSE 69; RESP 16; TEMP 37.6; O2SAT 99
== END 2023-08-03 20:06 | disposition home or self-care (01) ==
PROVIDERS: Emergency Provider Nurse Practitioner Family
DX: J06.9 Acute upper respiratory infection, unspecified (principal)
CPT/HCPCS: 99213; G0463

== ENCOUNTER 2023-09-08 12:57 | Emergency (ER) | payer OTHER, SELFPAY ==
--- NOTE | 2023-09-08 13:00 | ED.FEMALEGU ---
HPI - Female Genitourinary General Chief complaint: Urogenital-Female Stated complaint: Uti/infected tooth Time Seen by Provider: 09/08/23 13:00 Source: patient Mode of arrival: ambulatory Limitations: no limitations History of Present Illness HPI Narrative: Patient is a 52-year-old female who presents with 1 week of burning with urination, urgency, frequency. Denies any fever, chills, nausea, vomiting, diarrhea. Did take azo yesterday. Patient also having right upper dental pain after crown cracked 6 months ago. Patient was supposed to go to dentist yesterday and they called in her no longer accepting her insurance. MD elicited complaint: dysuria Related Data Home Medications Medication Instructions Recorded Confirmed levothyroxine 125 mcg tablet 125 mcg PO DAILY 08/03/23 09/08/23 omeprazole 40 mg capsule,delayed 40 mg PO DAILY 08/03/23 09/08/23 release hydroxychloroquine 200 mg tablet 200 mg PO DAILY 09/08/23 09/08/23 Allergies Allergy/AdvReac Type Severity Reaction Status Date / Time milk Allergy Mild BOWEL Verified 09/08/23 13:30 DISTURBANCES latex Allergy Unknown RASH Verified 09/08/23 13:30 Penicillins Allergy Unknown RASH Verified 09/08/23 13:30 Review of Systems Review of Systems: All systems reviewed & are unremarkable except as noted in HPI and below Constitutional: Constitutional: Denies chills, Denies fever(s), Denies headache(s), Denies malaise and Denies weakness Eyes: Eyes: Denies change in vision, Denies eye discharge and Denies irritation ENT: Denies otalgia, Reports facial pain (dental), Denies headache(s), Denies nasal congestion, Denies nasal discharge, Denies sinus pain and Denies sore throat Cardiovascular: Cardiovascular: Denies chest pain, Denies edema, Denies palpitations and Denies dyspnea Respiratory: Respiratory: Denies cough and Denies dyspnea Gastrointestinal: Gastrointestinal: Denies abdominal pain, Denies diarrhea, Denies nausea and Denies vomiting Genitourinary: Genitourinary: Denies hematuria, Reports nocturia, Reports dysuria, Denies flank pain and Reports urinary urgency Musculoskeletal: Musculoskeletal: Denies back pain and Denies numbness Integumentary/Breasts: Skin/Breast: Denies pruritus and Denies rash Neurologic: Denies headache(s), Denies numbness and Denies weakness Psychiatric: Psychiatric: Reports no additional psychiatric complaints Endocrine: Endocrine: Denies palpitations PMFSH Past Medical History Medical History Lupus Comments At time of signature, agree with nursing past medical, surgical, social and family history. There is no relevant family history pertinent to the presenting complaint. Exam Const: General: cooperative, healthy appearing, comfortable, no acute distress and well nourished Nutritional Appearance: well nourished Orientation/consciousness: patient oriented x3 HENMT: Head: normocephalic and atraumatic Ears: external ears normal Face/Nose/Sinus: Normal external nose present, Normal nares present and normal facial exam Face and sinus: normal facial exam Teeth and gingiva: abnormal tooth and associated gingiva upper right second molar tender Eyes: General: appearance normal, both eyes and all related structures Pupils: Equal, round and reactive pupils present EOM: EOMs intact bilaterally Neck: Neck: normal visual inspection, full ROM and supple Chest: Chest palpation & inspection: normal inspection of the chest Resp: Effort & Inspection: normal respiratory effort and able to speak in complete sentences Cardio: Rate: regular rate Rhythm: regular rhythm GI: Inspection: normal to inspection GI Palp: No abdominal tenderness and Yes Soft to palpation : General: Yes no CVA tenderness Back/Spine/Pelvis: Back: no CVA tenderness Skin: General skin exam: normal color and no rashes or lesions noted Neuro: General: patient oriented x3 and moves all extremities
[2023-09-08 13:06] VITALS: BP 112/70; PULSE 80; RESP 20; TEMP 37.3; O2SAT 98
== END 2023-09-08 13:38 | disposition home or self-care (01) ==
PROVIDERS: Emergency Provider Nurse Practitioner Family
DX: N30.00 Acute cystitis without hematuria (principal); M32.9 Systemic lupus erythematosus, unspecified; E03.9 Hypothyroidism, unspecified
CPT/HCPCS: 81003; 87086; 87088; 99213; G0463

== ENCOUNTER 2024-01-09 15:50 | Emergency (ER) | payer OTHER, SELFPAY ==
[2024-01-09 16:00] VITALS: BP 120/62; PULSE 69; RESP 16; TEMP 37.2; O2SAT 100
--- NOTE | 2024-01-09 16:34 | ED.URI ---
HPI - URI/Sore Throat General Chief Complaint: Upper Respiratory Infection Stated Complaint: Sore Throat Source: patient Mode of arrival: ambulatory Limitations: no limitations History of Present Illness HPI Narrative: 53 y/o female presented for c/o sore throat upon check in, however during HPI intake she says I do not have symptoms I wanted to be checked to see if I am a strep carrier. Related Data Home Medications Medication Instructions Recorded Confirmed levothyroxine 125 mcg tablet 125 mcg PO DAILY 08/03/23 01/09/24 omeprazole 40 mg capsule,delayed 40 mg PO DAILY 08/03/23 01/09/24 release fluticasone propionate 50 2 spray intranasal DAILY 01/09/24 01/09/24 mcg/actuation nasal spray,suspension Allergies Allergy/AdvReac Type Severity Reaction Status Date / Time milk Allergy Mild BOWEL Verified 09/08/23 13:30 DISTURBANCES latex Allergy Unknown RASH Verified 09/08/23 13:30 Penicillins Allergy Unknown RASH Verified 09/08/23 13:30 Review of Systems Review of Systems: CONSTITUTIONAL: Denies body aches, fever, chills, or sweats. EYES: Denies visual changes, redness, or discharge. ENT: Denies rhinorrhea, congestion, sore throat, or otalgia. CARDIOVASCULAR: Denies chest pain, palpitations, or edema. RESPIRATORY: Denies cough or dyspnea. GASTROINTESTINAL: Denies abdominal pain, nausea, vomiting, or diarrhea. GENITOURINARY: Denies dysuria or hematuria. SKIN: Denies rash, itching, or wounds. MUSCULOSKELETAL: Denies back pain, joint pain, or myalgia. NEUROLOGIC: Denies headache, numbness, tingling, or weakness. All systems reviewed & are unremarkable except as noted in HPI and below PMFSH Past Medical History Medical History Lupus Comments At time of signature, I have reviewed and agree with nursing past medical, surgical, social and family history unless otherwise noted. Please see nursing chart for further information. There is no relevant family history pertinent to the presenting complaint Exam Narrative: GENERAL: Well-appearing, well-nourished, and in no acute distress. EYES: EOMI. No redness or drainage. Conjunctivae normal. ENT: Mucous membranes pink and moist. No rhinorrhea. TMs normal bilaterally. Throat normal. Uvula midline. NECK: Normal AROM. Supple. No lymphadenopathy. CHEST: No respiratory distress. Clear to auscultation. HEART: Regular rate and rhythm. No murmur appreciated. Normal peripheral pulses. ABDOMEN: Soft, nontender, nondistended, normal active bowel sounds. SKIN: Warm, dry, no rash. Capillary refill normal. Normal skin turgor. NEURO: No focal deficits. Alert and oriented x3. Gait steady. Course Course Emergency Course: Patient is aware of diagnosis, understands and agrees to treatment plan. Anticipatory guidance given. Patient agrees to follow-up as directed and is aware of reasons to seek care at the emergency department. Portions of this record may have been created with voice recognition software Level of Care: Express Care Visit Vital Signs Vital signs: Vital Signs Temperature 98.9 F 01/09/24 16:00 Pulse Rate 69 01/09/24 16:00 Respiratory Rate 16 01/09/24 16:00 Blood Pressure 120/62 01/09/24 16:00 Pulse Oximetry 100 01/09/24 16:00 Oxygen Delivery Room Air 01/09/24 16:00 Temperature 98.9 F 01/09/24 16:00 Pulse Rate 69 01/09/24 16:00 Respiratory Rate 16 01/09/24 16:00 Blood Pressure 120/62 01/09/24 16:00 Pulse Oximetry 100 01/09/24 16:00 Oxygen Delivery Room Air 01/09/24 16:00 MDM - URI/Sore Throat MDM Narrative Medical decision making narrative: Negative strep results reviewed with mother. Discussed physical exam findings. Advised supportive measures and signs/symptoms to go to the ER. Pt is appropriate for outpt treatment and f/u. Mother states she had to leave and could not wait to sign the discharge paperwork. Differential
[2024-01-09 16:48] LABS: EDSTREPNEGPOS1 Negative (Negative)
== END 2024-01-09 16:30 | disposition home or self-care (01) ==
PROVIDERS: Emergency Provider Nurse Practitioner Family; PCP Family Medicine
DX: Z04.9 Encounter for examination and observation for unspecified reason (principal)
CPT/HCPCS: 87081; 87880; 99213; G0463